=== PATIENT | male | born 1955 | race Hispanic/Latino ===

== ENCOUNTER 2017-09-26 15:00 | Inpatient (IN) | payer SELFPAY ==
[2017-09-26 15:47] LABS: #Eosinphils 0.3 thou/uL (0.0-0.7); #Lymphocytes 1.5 thou/uL (1.20-3.40); #Monocytes 0.5 thou/uL (0.11-0.59); #Neutrophils 6.1 thou/uL (1.40-6.50); %Basophils 0.6 % (0.0-1.0); %Eosinophils 3.4 % (0.0-10.0); %Lymphocytes 17.6 % (21.0-51.0); %Monocytes 5.5 % (0.0-10.0); Hemoglobin 13.7 g/dL (14.0-18.0); Mean Corpuscular HGB CONC 34.6 g/dL (32.0-36.0); Mean Corpuscular Hemoglobin 31.1 pg (27.0-31.0); Mean Corpuscular Volume 89.9 fL (78.0-98.0); Mean Platelet Volume 8.1 fL (7.4-10.4); Platelet Count 261 thou/uL (130-400); RBC Distribution Width 11.9 % (11.5-14.5); White Blood Cell (WBC) Count 8.3 thou/uL (4.8-10.8)
--- NOTE | 2017-09-26 15:53 | CT ---
CT BRAIN WITHOUT CONTRAST: Date: 09/26/17 HISTORY: Right-sided numbness. FINDINGS: No evidence of acute infarct, hemorrhage, midline shift, or abnormal extra-axial fluid collections ar e seen. The ventricular size is appropriate and the basilar cisterns are patent. A tiny old lacunar i nfraction is seen in the right side of the brainstem. The bony calvarium is intact. There is mucosal disease in the paranasal sinuses. IMPRESSION: No CT evidence of acute intracranial process. POS: [facility]
[2017-09-26 16:10] LABS: ALT (SGPT) 7 U/L (8-55); AST (SGOT) 7 U/L (5-34); Albumin 4.4 g/dL (3.5-5.0); Alkaline Phosphatase 68 U/L (40-150); Anion Gap 13 mmol/L (10-20); BUN (Urea Nitrogen) 22 mg/dL (8.4-25.7); Bilirubin, Total 0.4 mg/dL (0.2-1.2); Calc. Creatinine Clearance 0 mL/min (70-130); Calcium 9.3 mg/dL (7.8-10.44); Carbon Dioxide 22 mmol/L (22-29); Chloride 106 mmol/L (98-107); Estimated GFR-MDRD 74; Globulin 2.3 g/dL (2.4-3.5); Glucose 352 mg/dL (70-105); Potassium 4.4 mmol/L (3.5-5.1); Protein, Total 6.7 g/dL (6.0-8.3); Sodium 137 mmol/L (136-145)
[2017-09-26 16:14] LABS: CKMB 0.6 ng/mL (0-6.6); Troponin I Less than 0.010 ng/mL (< 0.028)
--- NOTE | 2017-09-26 16:24 | RAD ---
PORTABLE CHEST ONE VIEW: 09/26/17 at 3:13 p.m. HISTORY: Altered mental status, right sided weakness and numbness. FINDINGS: The heart size is normal. The lungs are expanded without lobar consolidation, pneumothoraces or pleu ral effusions. IMPRESSION: No acute process. POS: [facility]
[2017-09-26 19:54] LABS: Troponin I Less than 0.010 ng/mL (< 0.028)
[2017-09-26] MEDS ORDERED: Labetalol HCl 100 MG/20 ML VIAL SLOW IVP PRN (20:31)
[2017-09-26] MEDS ORDERED: Ondansetron ODT 4 MG TAB PO PRN (20:31)
[2017-09-26] MEDS ORDERED: Senokot 8.6 MG TAB PO PRN (20:31)
[2017-09-26] MEDS ORDERED: hydrALAZINE 20 MG/ML VIAL SLOW IVP PRN (20:31)
[2017-09-26] MEDS ORDERED: Bisacodyl 5 MG TAB PO PRN (20:31)
[2017-09-26] MEDS ORDERED: Acetaminophen 325 MG TAB PO PRN (20:31)
[2017-09-26] MEDS ORDERED: Dextrose 50% Abboject 50 ML SYRINGE SLOW IVP PRN (20:34)
[2017-09-26] MEDS ORDERED: Dextrose 5% in Water 1,000 ML IV PRN (20:34)
[2017-09-26 22:10] VITALS: BMI 25.8
[2017-09-26] MEDS: Atorvastatin Calcium 40 MG TAB PO SCH (22:47)
[2017-09-26] MEDS: Docusate 100 MG CAP PO SCH (22:47)
[2017-09-26] MEDS: metFORMIN 850 MG TAB PO SCH (22:47)
[2017-09-26] MEDS: Famotidine 20 MG TAB PO SCH (22:48)
[2017-09-26 22:51] LABS: Troponin I Less than 0.010 ng/mL (< 0.028)
[2017-09-27 05:53] LABS: #Basophils 0.1 thou/uL (0.0-0.2); #Eosinphils 0.5 thou/uL (0.0-0.7); #Lymphocytes 2.1 thou/uL (1.20-3.40); #Monocytes 0.5 thou/uL (0.11-0.59); #Neutrophils 4.7 thou/uL (1.40-6.50); %Basophils 0.9 % (0.0-1.0); %Eosinophils 6.3 % (0.0-10.0); %Lymphocytes 26.5 % (21.0-51.0); %Neutrophils 60.3 % (42.0-75.0); Mean Corpuscular HGB CONC 34.3 g/dL (32.0-36.0); Mean Corpuscular Hemoglobin 30.8 pg (27.0-31.0); Mean Corpuscular Volume 89.8 fL (78.0-98.0); Mean Platelet Volume 8.2 fL (7.4-10.4); Platelet Count 249 thou/uL (130-400); RBC Distribution Width 11.9 % (11.5-14.5); Red Blood Cell (RBC) Count 4.23 mill/uL (4.70-6.10); White Blood Cell (WBC) Count 7.7 thou/uL (4.8-10.8)
[2017-09-27 05:57] LABS: Anion Gap 12 mmol/L (10-20); BUN (Urea Nitrogen) 17 mg/dL (8.4-25.7); Calc. Creatinine Clearance 103 mL/min (70-130); Calcium 8.9 mg/dL (7.8-10.44); Carbon Dioxide 23 mmol/L (22-29); Cardiac Risk 4.5 (Less than 4.5); Chloride 108 mmol/L (98-107); Cholesterol 116 mg/dl (< 200 Desired); Estimated GFR-MDRD Greater than 90; Glucose 167 mg/dL (70-105); HDL Cholesterol 26 mg/dL (>60 Neg Risk); LDL Cholesterol, Calculated 73 mg/dL; Potassium 4.1 mmol/L (3.5-5.1); Sodium 139 mmol/L (136-145); Triglycerides 85 mg/dL (Less than 150)
[2017-09-27] MEDS: HumaLOG 300 UNITS/3 ML VIAL SC PRN ×4 (06:08→20:40)
[2017-09-27] MEDS: Lisinopril 10 MG TAB PO SCH (08:11)
[2017-09-27] MEDS: Docusate 100 MG CAP PO SCH ×2 (08:11→20:46)
[2017-09-27] MEDS: metFORMIN 850 MG TAB PO SCH ×2 (08:11→20:33)
[2017-09-27] MEDS: glipiZIDE 10 MG TAB PO SCH ×2 (08:11→19:04)
[2017-09-27] MEDS: Famotidine 20 MG TAB PO SCH ×2 (08:11→20:33)
[2017-09-27] MEDS: Enoxaparin Sodium 30 MG/0.3 ML SYRINGE SC SCH (08:16)
[2017-09-27] MEDS ORDERED: Aspirin 81 mg Enteric Coated Tablet PO SCH (09:00)
--- NOTE | 2017-09-27 09:30 | MRI ---
MRI BRAIN NONCONTRAST: DATE: 09/27/17 TIME: 0849 hours HISTORY: 62-year-old male with dizziness and right-sided facial hypesthesia (numbness) for 2 days. TIA. COMPARISON: None available. FINDINGS: There is a small, faint, approximately 1.0 x 0.4 cm lesion that is mildly hyperintense on T2 WI and F LAIR, and has moderately restricted diffusion, consistent with a subacute lacunar infarction, in the matilda, on the left side. More superiorly in the right side of the upper matilda, there is a tiny old lacunar infarction measuring a few millimeters in size. There are scattered small subcentimeter lesions (that are hyperintense on T2 WI and FLAIR) in the bilateral periventricular white matter and deep white matter, consistent wit h a combination of chronic ischemic white matter changes due to microvascular atherosclerosis, and a few tiny old white matter lacunar infarctions. There is no evidence of recent or remote intra-axial h emorrhage. The ventricles are normal in size and configuration. No mass effect, midline shift, or ext ra-axial fluid collection. Mucosal thickening in the right sphenoid air cell and bilateral anterior e thmoid air cells (left greater than right). Flow-voids are grossly maintained in the major arteries o f the [place]. IMPRESSION: 1. Subacute brainstem lacunar infarction in the left side of the matilda. 2. Old lacunar infarction in the right side of the matilda. 3. Mild chronic ischemic white matter changes and a few old lacunar infarctions in the bilateral cer ebral deep white matter. CODE TElisa Ramirez POS: [facility]
--- NOTE | 2017-09-27 11:29 | PDOC.EVN ---
Event Note - Event Note Event Note: h&p [id number]
--- NOTE | 2017-09-27 14:06 | HP ---
PRIMARY CARE PHYSICIAN: [facility]. CHIEF COMPLAINT: Right-sided face, arm and leg numbness. HISTORY OF PRESENT ILLNESS: This is a 62-year-old male with a known history of hypertension, type 2 diabetes who presented with a chief complaint of right- sided numbness and tingling that occurred upon awakening, the day prior to presentation in the emergency department. Patient denies any similar prior episodes. At the time of my evaluation, the numbness and tingling is significantly improved to a patch of residual tingling along his right forearm. Patient also had some dizziness and difficulty with ambulation with the dizziness earlier in the day. At the time of my evaluation, the dizziness has resolved. Patient states he has not really been up to ambulate much since coming to the hospital. In the emergency department, the patient had a CT of the head which did not demonstrate any stroke, but did demonstrate an old stroke that the patient was previously unaware. REVIEW OF SYSTEMS: As per HPI. CONSTITUTIONAL: No recent fevers, chills, no recent weight loss or gain that the patient is aware of. HEENT: As per HPI. CARDIOVASCULAR: No chest pain, no chest pressure, no episodes of diaphoresis. No left-sided arm numbness or tingling. RESPIRATORY: No shortness of breath with exertion. No cough, no congestion. No recent upper respiratory infection. GASTROINTESTINAL: Denies any nausea, vomiting, abdominal pain, diarrhea or constipation issues. GENITOURINARY: Denies any dysuria, changes in urinary frequency, quality or quantity. MUSCULOSKELETAL: As per above. NEUROLOGIC: As per above. Remainder of the review of systems otherwise negative. PAST MEDICAL HISTORY: 1. History of type 2 diabetes. 2. History of hypertension. 3. History of stroke which the patient was previously unaware of. 4. Status post I&D of his right scalp. HOME MEDICATIONS: 1. Lisinopril 10 mg p.o. daily. 2. Glipizide 10 mg p.o. b.i.d. 3. Metformin 850 mg p.o. b.i.d. ALLERGIES: No known drug allergies. FAMILY HISTORY: Significant for diabetes and hypertension in his family. SOCIAL HISTORY: The patient is here with his significant other. Denies any alcohol or illicit drug use. Patient does endorse tobacco use. PHYSICAL EXAMINATION: GENERAL: The patient is awake, alert, appropriate, in no acute distress, seen in the hospital bed. HEENT: Equal ocular motions are intact. NEUROLOGIC: Cranial nerves II-XII grossly intact. NECK: Atraumatic, normocephalic. Moist mucous membranes. CARDIOVASCULAR: S1, S2. No murmurs, rubs or gallops. Pulses 2+ bilateral upper extremities, no pitting pedal edema. RESPIRATORY: Reasonable air movement. No conversational dyspnea. No wheezes, rales or rhonchi. LUNGS: Clear to auscultation otherwise. GASTROINTESTINAL: Positive bowel sounds. Soft and nontender to palpation. MUSCULOSKELETAL: Moving all 4 extremities. NEUROLOGIC: Grossly NIH of 3 in the emergency department, at the time of my evaluation is essentially 0. IMAGING DATA: On 09/26/2017, CT of the brain impression, " CT evidence of acute intracranial process." Findings; "a tiny old lacunar infarction is seen in the right side of the brainstem." On 09/26/2017, chest x-ray impression: "No acute process." LABORATORY DATA: CBC 8.3, hemoglobin 13.7, hematocrit 39.6, platelets 261. Sodium 137, potassium 4.4, chloride 106, bicarbonate 22, BUN 22, creatinine 1.02 , glucose 352, calcium 9.3, total bilirubin 0.4, AST 7, ALT 7, alkaline phosphatase 68, troponin less than 0.01. Total protein 6.7, albumin 4.4. ASSESSMENT AND PLAN: This is a 62-year-old male presenting with right-sided symptoms. 1. Right-sided symptoms including weakness, paresthesias. Concern for the possibility of TIA as the patient's symptoms are currently resolved. The patient does have risk factors including hypertension, hyperlipidemia, tobacco use, and apparently a prior stroke, which was likely "silent" as the patient was unaware of any signs or symptoms and had never been told that he had sustained a stroke in the past. Aspirin, continue the patient's home regimen for his risk factors including hypertension and diabetes. Appreciate Neurology consult. Order an MRI of the brain. Close neurological checks. 2. Hypertension, close monitoring of his blood pressure. Permissive hypertension if needed. 3. Type 2 diabetes; currently with glucose of 352. We will check hemoglobin A1c. Resume the patient's home medications and sliding scale insulin on top if needed. 4. Tobacco use counseling was provided, patient is currently precontemplative of cessation. 5. Prior stroke. Please see discussion above. 6. Diet: Cardiac diabetic. 7. Activity: As tolerated. 8. Deep venous thrombosis prophylaxis, enoxaparin. MTDD
[2017-09-27] MEDS: Atorvastatin Calcium 40 MG TAB PO SCH (20:33)
--- NOTE | 2017-09-27 21:30 | PDOC.PN ---
- Subjective Encounter Start Date: 09/27/17 Encounter Start Time: 21:25 Subjective: f/u for R-sided paresthesias and dizziness with + MRI brain findings of -: acute/subacute lacunar infarcts of the matilda. Feels ok overall and -: paresthesias resolved. - Objective Resuscitation Status: Resuscitation Status FULL:Full Resuscitation MAR Reviewed: Yes Vital Signs & Weight: Vital Signs (12 hours) Temp Pulse Resp BP Pulse Ox 09/27/17 15:58 97.9 F 68 16 143/81 H 95 09/27/17 11:49 97.7 F 70 16 136/73 96 Weight Weight 165 lb 1.6 oz I&O: 09/26/17 09/27/17 09/28/17 06:59 06:59 06:59 Intake Total 880 Balance 880 Result Diagrams: 09/27/17 05:06 09/27/17 05:06 Additional Labs: Accuchecks 09/27/17 09/27/17 09/27/17 20:32 17:03 10:44 POC Glucose 151 H 295 H 300 H 09/27/17 09/26/17 06:07 21:49 POC Glucose 177 H 164 H Laboratory Tests 09/27/17 05:06 Triglycerides 85 Cholesterol 116 LDL Cholesterol, Calc 73 HDL Cholesterol 26 Radiology Reviewed by me: Yes (MRI brain - lacunar infarct L matilda, subacute) EKG Reviewed by me: Yes (Tele - SR) Phys Exam - Physical Examination Constitutional: NAD HEENT: PERRLA, sclera anicteric, oral pharynx no lesions Neck: no nodes, no JVD, supple, full ROM Respiratory: no wheezing, no rales, no rhonchi, clear to auscultation bilateral S1, S2 Cardiovascular: RRR, no significant murmur, no rub, gallop Gastrointestinal: soft, non-tender, no distention, positive bowel sounds Musculoskeletal: no edema, pulses present Neurological: non-focal, normal sensation, moves all 4 limbs Psychiatric: normal affect, A&O x 3 Skin: no rash, normal turgor, cap refill <2 seconds Dx/Plan (1) Left pontine CVA Code(s): I63.50 - CEREB INFRC DUE TO UNSP OCCLS OR STENOS OF UNSP CEREB ARTERY Status: Acute Comment: ? subacute lacunar infarct of L matilda, continue ASA, Lipitor, stroke protocol (2) Paresthesias Code(s): R20.2 - PARESTHESIA OF SKIN Status: Acute Comment: Secondary to #1 , improved (3) HTN (hypertension) Code(s): I10 - ESSENTIAL (PRIMARY) HYPERTENSION Status: Chronic Qualifiers: Hypertension type: essential hypertension Qualified Code(s): I10 - Essential (primary) hypertension Comment: Continue Lisinopril and monitor clinical response (4) DM II (diabetes mellitus, type II), controlled Code(s): E11.9 - TYPE 2 DIABETES MELLITUS WITHOUT COMPLICATIONS Status: Chronic Comment: ISS, continue Glipizide and Metformin, ADA - Plan PT/OT, social insurance adviser, out of bed/ambulate, DVT proph w/SCDs Stable overall -: Continue ASA and Lipitor -: Stroke protocol -: Continue Lisinopril and titrate for optimal BP response -: AM lab: BMP, CBC * Likely home in am
[2017-09-28 05:30] LABS: #Basophils 0.1 thou/uL (0.0-0.2); #Eosinphils 0.3 thou/uL (0.0-0.7); #Lymphocytes 1.9 thou/uL (1.20-3.40); #Monocytes 0.5 thou/uL (0.11-0.59); #Neutrophils 4.4 thou/uL (1.40-6.50); %Basophils 1.4 % (0.0-1.0); %Eosinophils 3.8 % (0.0-10.0); %Lymphocytes 26.9 % (21.0-51.0); %Monocytes 6.4 % (0.0-10.0); %Neutrophils 61.4 % (42.0-75.0); Hemoglobin 13.4 g/dL (14.0-18.0); Mean Corpuscular HGB CONC 33.5 g/dL (32.0-36.0); Mean Corpuscular Hemoglobin 30.2 pg (27.0-31.0); Mean Corpuscular Volume 90.4 fL (78.0-98.0); Mean Platelet Volume 8.7 fL (7.4-10.4); Platelet Count 248 thou/uL (130-400); Red Blood Cell (RBC) Count 4.44 mill/uL (4.70-6.10); White Blood Cell (WBC) Count 7.2 thou/uL (4.8-10.8)
[2017-09-28 05:55] LABS: Anion Gap 12 mmol/L (10-20); BUN (Urea Nitrogen) 19 mg/dL (8.4-25.7); Calc. Creatinine Clearance 103 mL/min (70-130); Carbon Dioxide 22 mmol/L (22-29); Chloride 108 mmol/L (98-107); Estimated GFR-MDRD Greater than 90; Glucose 123 mg/dL (70-105); Potassium 3.8 mmol/L (3.5-5.1); Sodium 138 mmol/L (136-145)
[2017-09-28] MEDS ORDERED: Aspirin 325 mg Enteric Coated Tablet PO SCH (09:00)
[2017-09-28] MEDS: Enoxaparin Sodium 30 MG/0.3 ML SYRINGE SC SCH (09:04)
[2017-09-28] MEDS: Famotidine 20 MG TAB PO SCH (09:04)
[2017-09-28] MEDS: Docusate 100 MG CAP PO SCH (09:04)
[2017-09-28] MEDS: Lisinopril 10 MG TAB PO SCH (09:04)
[2017-09-28] MEDS: glipiZIDE 10 MG TAB PO SCH (09:04)
[2017-09-28] MEDS: metFORMIN 850 MG TAB PO SCH (09:05)
--- NOTE | 2017-09-28 11:05 | CON ---
DATE OF CONSULTATION: 09/27/2017 REFERRING PROVIDER: Dr. Javier Riley. REASON FOR CONSULTATION: Right-sided numbness. HISTORY OF PRESENT ILLNESS: Mr. Glass is a pleasant 62-year-old male who has been consulted for evaluation of right-sided numbness. Patient reports that he woke up on the day of admission with a complaint of right face, arm, and leg numbness. He also had some difficulty with gait and balance as well as some episodes of dizziness. He did not have any vision changes. There are no changes in his speech or swallowing. He did not appreciate any facial droop. He did feel heaviness in his rig ht upper extremity. He denied having headache, chest pain and palpitation. PAST SURGICAL HISTORY: Significant for I&D of right calf. PAST MEDICAL HISTORY: Significant for hypertension and diabetes. SOCIAL HISTORY: He denies smoking, alcohol use, or illicit drug use. CURRENT MEDICATIONS: Please review MAR. ALLERGIES: No known drug allergies. REVIEW OF SYSTEMS: As mentioned above in the HPI, otherwise negative. PHYSICAL EXAMINATION: VITAL SIGNS: Blood pressure of 143/81, pulse of 68, temperature 97.9, respirations of 16, O2 sats 95 % on room air. GENERAL: Well-developed, well-nourished male in no apparent distress. RESPIRATORY: Clear to auscultation bilaterally. CARDIOVASCULAR: Regular rate and rhythm. NEUROLOGIC: Mental status: The patient is awake, alert, oriented x3. Speech and language, normal s peech. Cranial nerves: Pupils are 3 mm and reactive. Visual anguiano are intact. Extraocular muscles are intact. No nystagmus is noted. Face is symmetric. Tongue and uvula are midline. Motor exam showe d normal tone and bulk with 5/5 strength in both upper extremities and both lower extremities. Senso ry: Sensation is intact and symmetric. Deep tendon reflexes 2+ reflexes in both upper and lower ext remities. Babinski: Plantar responses flexion bilaterally. Coordination intact to [id number] r tapping bilaterally. LABORATORY DATA: Reviewed, which included CBC, BMP, lipid profile, which is significant for hemoglob in 13.4, hematocrit 40.1, glucose of 167, otherwise unremarkable. IMAGING DATA: MRI brain without contrast was reviewed, which showed acute left pontine ischemic infa rct. Echocardiogram results were reviewed, which showed EF of 55%-60% without any wall motion abnorm ality or intracardiac mass or thrombus being noted. IMPRESSION: 1. Acute left pontine ischemic infarct. 2. Borderline hypertension. 3. Diabetes. ASSESSMENT AND PLAN: Mr. Glass is a pleasant 62-year-old male who presented with an acute on set of right-sided numbness and weakness. He is found to have acute left pontine ischemic infarct wh ich explains his symptoms, this is likely secondary to poorly controlled risk factors including blood pressure and diabetes. I had a long discussion with the patient and explained that he needs to cont rol his blood pressure, diabetes, diet and exercise. I also explained for him to take aspirin 325 mg daily for secondary stroke prevention. No further neurological workup needed at this time. Patient is okay to be discharged home from neurological standpoint.
[2017-09-28 11:43] VITALS: BP 148/83; TEMP 98.4
--- NOTE | 2017-09-28 15:45 | DIS ---
DATE OF ADMISSION: 09/27/2017 DATE OF DISCHARGE: 09/28/2017 CONDITION AT THE TIME OF DISCHARGE: Stable and improved. DISCHARGE DIAGNOSES: 1. Left-sided pontine lacunar infarction: Acute to subacute in nature. 2. Borderline hypertension. 3. Diabetes mellitus. DISCHARGE MEDICATIONS: New medication, aspirin 325 mg daily and atorvastatin 40 mg daily. Resume home medications, Glucophage 850 mg p.o. b.i.d., lisinopril 10 mg daily, glipizide 10 mg p.o. b.i.d. PRIMARY CARE PHYSICIAN: Joseph Villagran M.D. INHOUSE CONSULTATIONS: Neurology, Gifty Guerrero M.D. PROCEDURES DONE IN THE HOSPITAL: 1. CT scan of the brain upon presentation to the emergency room, which is negative for any acute int racranial process. 2. Transthoracic echocardiogram, which shows EF of 55%-60% and diastolic dysfunction, mild mitral an d tricuspid regurgitation. 3. MRI of the brain, which was read as subacute lacunar brainstem infarction in the left side of the matilda and old lacunar infarction in the right side of the matilda. HISTORY OF PRESENTING ILLNESS: Mr. Glass is a pleasant 62-year-old male with history of diabetes, hyp ertension and history of CVA who presented to the emergency room with complaints of right-sided face, arm and leg paraesthesias. Upon presentation, he was hemodynamically stable with a blood pressure o f 165/83, pulse of 84, saturating 92% on room air. Because of his stroke-like symptoms, he underwent a CT scan of the brain in the emergency room, which was unremarkable. He was admitted for further w orkup. Please see admission history and physical for further detail. His blood sugar at the time of admission was 352. He reported compliance with all of his medications. HOSPITAL COURSE: The patient was seen by Stroke Team and Neurology. He underwent stroke workup with MRI of the brain and echocardiogram. Results are mentioned as above. He was indeed having a subacu te to acute left-sided pontine stroke. Dr. Guerrero from Neurology saw the patient and recommended a ful l-dose aspirin along with a statin. He recommended better control of his blood pressure and diabetes . This was explained to the patient by him and myself. By the time of discharge, the patient's symptoms have resolved and he is hemodynamically stable and e ager to go home. He has been cleared for discharge from Neurology as well as from OT and PT. He did not exhibit any outpatient therapy needs. He was seen and examined prior to discharge. PHYSICAL EXAMINATION: VITAL SIGNS: This morning, temperature 98.4, pulse of 71, respirations 15, saturating 98% on room ai r, blood pressure 148/83. GENERAL: No acute distress, sitting upright in bed and eating breakfast. CHEST: Clear to auscultation bilaterally. Rate and rhythm are regular. NEUROLOGICAL: Nonfocal. LABORATORY DATA: Lipid panel within normal limits. Cardiac enzymes, troponin less than 0.010 x3. Discharge plan was discussed with the patient and his family members and they verbalized adrian clemens. He will follow up with primary care physician in 1 week and with Neurology in 2-3 weeks. Prescri ption for new medications were provided.
--- NOTE | 2017-10-01 13:18 | PQF ---
Lexa Glass RICHA MD [id number] [facility] [id number] CLINICAL DOCUMENTATION CLARIFICATION FORM: POST DISCHARGE DATE: 10/01/17 ATTN: Dr. Gastelum Please exercise your independent, professional judgment in responding to the clarification form. Clinical indicators are provided on the bottom of this form for your review Please clarify if patient had: Please check appropriate box(s): [ ] Right sided weakness/paresthesia only [ ] Right sided hemiparesis [ ] Other diagnosis (please specify) ] ] Unable to determine In addition, please specify: Present on Admission (POA): [ ] Yes [ ] No [ ] Unable to determine CLINICAL INDICATORS - SIGNS / SYMPTOMS / LABS Per H&P: Right-sided face, arm and leg numbness. Right-sided symptoms including weakness, paresthesias. Per consult: He also had some difficulty with gait and balance. Presented with an acute onset of right-sided numbness and weakness. RISK FACTORS Per discharge summary: Left sided pontine lacunar infarction. Acute to subacute in nature. TREATMENT: (per progress notes) PT/OT. Full dose Aspirin with Statin. (This form is maintained as a part of the permanent medical record) 2014 [employer]. All Rights Reserved [email or web address] [email or web address] [phone] [email or web address]
--- NOTE | 2017-10-05 16:56 | EKG ---
Test Reason : RIGHT SIDE NUMBNESS Blood Pressure : / mmHG Vent. Rate : 080 BPM Atrial Rate : 080 BPM P-R Int : 152 ms QRS Dur : 132 ms QT Int : 404 ms P-R-T Axes : 041 090 044 degrees QTc Int : 465 ms Normal sinus rhythm Right bundle branch block Abnormal ECG Confirmed by TANYA ALEGIRA DO ([id number]), magazine editor DAYSI LOPEZ ([id number]) on 10/05/2017 4:56:22 PM Referred By: DO ALEGRIA Confirmed By:TANYA ALEGRIA DO
== END 2017-09-28 12:18 | disposition home or self-care (01) | DRG 65 ==
LOC: ERS 15:00 → 2SE 18:03
PROVIDERS: ADMIT Internal Medicine; ATTEND Internal Medicine
DX: I63.9 Cerebral infarction, unspecified (principal); G81.91 Hemiplegia, unspecified affecting right dominant side; I10 Essential (primary) hypertension; E11.9 Type 2 diabetes mellitus without complications; Z79.84 Long term (current) use of oral hypoglycemic drugs; Z79.899 Other long term (current) drug therapy
CPT/HCPCS: 36415; 36416; 70450; 70551; 71045; 80048; 80053; 80061; 82553; 84484; 85025; 93005; 93306; G8978-GP-CH; G8979-GP-CH; G8980-GP-CH; G8987-GO-CH; G8988-GO-CH; G8989-GO-CH; J1650